=== PATIENT | female | born 1945 | race Caucasian/White ===

== ENCOUNTER 2016-06-01 06:49 | Day surgery (SDC) | payer MEDICARE, OTHER ==
[~2016-06-01] VITALS: Ht 162.6 cm; Wt 61.2 kg
[~2016-06-01 06:49] MED LIST: ALENDRONATE70 MG PO; AMBIEN5 MG PO; AMLODIPINE BESYL5 MG PO; ASPIRIN ADULT L81 MG PO; ATENOL/CHLOR1 TA2 PO; AUGMENTIN875TAB PO; BENAZEPRIL20 M1; CRESTOR20 MG PO; DICLOFENAC75 MG PO; FERROUS SULFAT325 MG PO; GABAPENTIN400 M2 PO; LEVOTHYROXIN50 MC1 PO; NAPROXEN SOD220 M3; NEXIUM20 M1 PO; PERCOCET 5/325M1 TAB PO
[2016-06-01] MEDS ORDERED: PERCOCET 5/325M1 TAB PO (09:18)
[2016-06-01 09:36] VITALS: BP 160/72
== END 2016-06-01 09:50 | disposition home or self-care (01) ==
LOC: ORM 06:49
PROVIDERS: ATTEND Anesthesiology Pain Medicine
PROC: 3E0T3TZ Introduction of Destructive Agent into Peripheral Nerves and Plexi, Percutaneous Approach (ICD-10-PCS; principal; 2016-06-01)
DX: M54.5 Low back pain (principal); M41.80 Other forms of scoliosis, site unspecified; M47.816 Spondylosis without myelopathy or radiculopathy, lumbar region

== ENCOUNTER 2017-04-05 06:22 | Day surgery (SDC) | payer MEDICARE, OTHER ==
[~2017-04-05] VITALS: Ht 162.6 cm; Wt 59.0 kg
[2017-04-05 08:23] VITALS: BP 136/69
== END 2017-04-05 09:02 | disposition home or self-care (01) ==
LOC: ORM 06:22
PROVIDERS: ATTEND Anesthesiology Pain Medicine
PROC: 3E0T3TZ Introduction of Destructive Agent into Peripheral Nerves and Plexi, Percutaneous Approach (ICD-10-PCS; principal; 2017-04-05)
DX: M54.5 Low back pain (principal); M41.80 Other forms of scoliosis, site unspecified; M47.816 Spondylosis without myelopathy or radiculopathy, lumbar region

== ENCOUNTER 2018-02-21 06:49 | Day surgery (SDC) | payer MEDICARE, OTHER ==
[~2018-02-21] VITALS: Ht 162.6 cm; Wt 56.7 kg
[~2018-02-21 06:49] MED LIST changes: +HYDROCHLOROT50 MG PO; +TENORMIN PO; +TIZANIDINE4 MG PO
[2018-02-21 10:15] VITALS: BP 141/65
== END 2018-02-21 09:15 | disposition home or self-care (01) ==
LOC: ORM 06:49
PROVIDERS: ATTEND Anesthesiology Pain Medicine
PROC: 3E0U33Z Introduction of Anti-inflammatory into Joints, Percutaneous Approach (ICD-10-PCS; principal; 2018-02-21)
PROC: 3E0U3BZ Introduction of Anesthetic Agent into Joints, Percutaneous Approach (ICD-10-PCS; 2018-02-21)
DX: M46.1 Sacroiliitis, not elsewhere classified (principal)

== ENCOUNTER → 2018-05-15 | Outpatient (REF) | payer MEDICARE, OTHER ==
[~2018-05-15] MED LIST changes: +NEURONTIN600 MG PO
[2018-05-15 10:25] VITALS: BP 147/86
[2018-05-15 10:31] LABS: BARBITURATES NEGATIVE (NEGATIVE); COCAINE NEGATIVE (NEGATIVE); METHADONE NEGATIVE (NEGATIVE); OXCYCODONE POSITIVE (NEGATIVE); TETRAHYDROCANNABIONOL NEGATIVE (NEGATIVE); TRICYLIC ANTIDEPRESSANTS NEGATIVE (NEGATIVE)
== END | disposition home or self-care (01) ==
LOC: PAIN/MGT 10:03
PROVIDERS: ATTEND Anesthesiology Pain Medicine
DX: Z51.81 Encounter for therapeutic drug level monitoring (principal); Z79.891 Long term (current) use of opiate analgesic

== ENCOUNTER 2018-05-23 06:18 | Day surgery (SDC) | payer MEDICARE, OTHER ==
[~2018-05-23] VITALS: Ht 162.6 cm; Wt 56.7 kg
[2018-05-23 08:12] VITALS: BP 145/70
== END 2018-05-23 08:27 | disposition home or self-care (01) ==
LOC: ORM 06:18
PROVIDERS: ATTEND Anesthesiology Pain Medicine
PROC: 3E0T3TZ Introduction of Destructive Agent into Peripheral Nerves and Plexi, Percutaneous Approach (ICD-10-PCS; principal; 2018-05-23)
PROC: BR161ZZ Fluoroscopy of Lumbar Facet Joint(s) using Low Osmolar Contrast (ICD-10-PCS; 2018-05-23)
DX: M54.5 Low back pain (principal); M46.1 Sacroiliitis, not elsewhere classified

== ENCOUNTER 2018-06-20 07:40 | Day surgery (SDC) | payer MEDICARE, OTHER ==
[2018-06-20 10:03] VITALS: BP 118/56
== END 2018-06-20 09:52 | disposition home or self-care (01) ==
LOC: ORM 07:40
PROVIDERS: ATTEND Anesthesiology Pain Medicine
PROC: 3E0U33Z Introduction of Anti-inflammatory into Joints, Percutaneous Approach (ICD-10-PCS; principal; 2018-06-20)
PROC: 3E0U3BZ Introduction of Anesthetic Agent into Joints, Percutaneous Approach (ICD-10-PCS; 2018-06-20)
DX: M46.1 Sacroiliitis, not elsewhere classified (principal); M54.5 Low back pain

== ENCOUNTER 2022-04-28 11:46 | Emergency (ER) | payer MEDICARE, OTHER ==
[~2022-04-28] VITALS: Ht 162.6 cm; Wt 58.0 kg
[2022-04-28] VITALS (7 sets, daily range): BP systolic 70–128; BP diastolic 53–110
[~2022-04-28 11:46] MED LIST changes: +LYRICA100 MG PO; +LYRICA150 MG PO; +PERCOCET 5/321 COMBO PO; +PERCOCET1 TA2 PO; +PREGABALIN50 MG PO
[2022-04-28] MEDS ORDERED: NAPROXEN500 MG PO (15:12)
[2022-04-28] MEDS ORDERED: PREDNISONE10 MG PO ×2 (15:12→15:14)
[2022-04-28] MEDS ORDERED: METHOCARBAMOL500 MG PO (15:12)
== END 2022-04-28 15:36 | disposition home or self-care (01) ==
LOC: ED 11:46
DX: M54.16 Radiculopathy, lumbar region (principal); I10 Essential (primary) hypertension; M41.9 Scoliosis, unspecified; Z96.643 Presence of artificial hip joint, bilateral